=== PATIENT | male | born 1995 | race Caucasian/White ===

== ENCOUNTER 2019-09-09 02:03 | Emergency (ER) | payer OTHER ==
[~2019-09-09] VITALS: Ht 185.4 cm; Wt 74.8 kg
[2019-09-09] MEDS ORDERED: DOLOGESIC 500-1 EACH PO (03:59)
[2019-09-09] MEDS ORDERED: ZYNCOF 20-400120 ML PO (04:00)
== END 2019-09-09 04:32 | disposition home or self-care (01) ==
LOC: ER 02:03
DX: B34.9 Viral infection, unspecified (principal)